=== PATIENT | female | born 1945 | race American Indian/Alaskan Native ===

== ENCOUNTER 2017-02-20 11:50 | Emergency (ER) | payer MEDICARE ==
[2017-02-20 11:54] VITALS: BMI 39.1
[2017-02-20 12:00] VITALS: RESP 18; O2SAT 100
--- NOTE | 2017-02-20 12:16 | ED PDOC ---
Arrival/HPI - General Historian: Patient - History of Present Illness Time/Duration: 4-6 hours Symptom Onset: Sudden Symptom Course: Unchanged - General Chief Complaint: Chest Pain Time Seen by Provider: 02/20/17 11:53 - History of Present Illness Narrative History of Present Illness (Text): 02/20/17 12:12 71 y/o female with hx DM, HTN, questionable coronary disease presenting with complaints of left sided chest pain. Patient states pain started this morning and has persisted since. She describes the pain as heaviness located over her left chest. Patient denies radiation of pain, shortness of breath or diaphoresis. Her discomfort is not exacerbated with exertion. Patient is compliant with her medications. She underwent cardiac stress testing in 2013 which patient states was normal. There is a strong family history of early heart disease in her family as patient states her father and brother suffered from heart problems in their early 50's. (Eduard Mendez) Past Medical History - Provider Review Nursing Documentation Reviewed: Yes - Cardiac Hx Cardiac Disorders: Yes Hx Hypertension: Yes - Pulmonary Hx Respiratory Disorders: No - Neurological Hx Neurological Disorder: No - HEENT Hx HEENT Disorder: No - Renal Hx Renal Disorder: No - Endocrine/Metabolic Hx Endocrine Disorders: Yes Hx Diabetes Mellitus Type 2: Yes - Hematological/Oncological Hx Blood Disorders: No - Integumentary Hx Dermatological Disorder: No - Musculoskeletal/Rheumatological Hx Musculoskeletal Disorders: No - Gastrointestinal Hx Gastrointestinal Disorders: No - Genitourinary/Gynecological Hx Genitourinary Disorders: No - Psychiatric Hx Psychophysiologic Disorder: No Hx Substance Use: No - Surgical History Hx Hysterectomy: Yes (1995) Other/Comment: R Knee 2004 Family/Social History - Physician Review Nursing Documentation Reviewed: Yes Family/Social History: Diabetes, CAD/[place] Smoking Status: Never Smoked Hx Alcohol Use: No Hx Substance Use: No Allergies/Home Meds Allergies/Adverse Reactions: Allergies No Known Allergies Allergy (Verified 02/20/17 13:00) Home Medications: Home Meds Medication Instructions Recorded Confirmed Clopidogrel [Plavix] 75 mg PO DAILY 12/11/15 02/20/17 Linagliptin [Tradjenta] 5 mg PO DAILY 12/11/15 02/20/17 Metoprolol Succinate [Toprol XL] 50 mg PO DAILY 12/11/15 02/20/17 Review of Systems - Physician Review All systems were reviewed & negative as marked: Yes - Review of Systems Constitutional: absent: Fatigue, Fevers ENT: Normal Respiratory: absent: SOB, Cough Cardiovascular: Chest Pain. absent: Palpitations, Calf Pain Gastrointestinal: absent: Abdominal Pain, Diarrhea, Nausea, Vomiting Genitourinary Female: absent: Dysuria, Frequency, Hematuria Musculoskeletal: absent: Arthralgias, Back Pain Skin: absent: Rash, Pruritis Neurological: absent: Headache, Dizziness, Focal Weakness Psychiatric: absent: Anxiety, Depression Physical Exam Vital Signs Reviewed: Yes Temperature: Afebrile Blood Pressure: Normal Pulse: Regular Respiratory Rate: Normal Appearance: Positive for: Well-Appearing Pain Distress: None Mental Status: Positive for: Alert and Oriented X 3 - Systems Exam Head: Present: Atraumatic, Normocephalic Pupils: Present: PERRL Extroacular Muscles: Present: EOMI Conjunctiva: Present: Normal Mouth: Present: Moist Mucous Membranes Neck: Present: Normal Range of Motion Respiratory/Chest: Present: Clear to Auscultation. No: Respiratory Distress, Wheezes Cardiovascular: Present: Regular Rate and Rhythm, Normal S1, S2 Abdomen: Present: Normal Bowel Sounds. No: Tenderness, Distention Upper Extremity: Present: Normal Inspection. No: Cyanosis, Edema Lower Extremity: Present: Normal Inspection. No: Edema, CALF TENDERNESS, NORMAL PULSES Neurological: Present: GCS=15, CN II-XII Intact, Speech Normal Skin: Present: Warm, Dry Psychiatric: Present: Alert, Oriented x 3, Normal Insight, Normal Concentration Vital Signs Temp Pulse Resp BP Pulse Ox 02/20/17 15:00 68 18 132/82 100 02/20/17 13:16 98.0 F 71 18 134/86 100 02/20/17 11:59 97.9 F 72 18 136/99 H 100 Medical Decision Making - EKG Interpretation Interpreted by ED Physician: Yes (NSR with occational PVC. No acute ischemic changes) Type: 12 lead EKG ED Course and Treatment: 02/20/17 12:20 71 y/o female with hx DM, HTN presenting with complaints of chest pain. Patient with strong family history of heart disease with risk factors including HTN and diabetes. She is currently taking Aspirin and Plavix at home. Last stress test was reportedly negative in 2013. Due to family hx and risk factors will r/o ACS. - CBC - CMP - Troponin - EKG with NSR. PVC's. No evidence of acute ischemia 02/20/17 15:33 Lab results reviewed. Troponin is negative. Discussed with the patient the need for admission for to trend cardiac enzymes. However the patient refused admission at this time and wishes to sign out AMA. The risks of leaving without medical care were discussed including permanent bodily injury and . The patient voiced understanding. (Eduard Mendez) Seen and examined with resident. 71 y/o F p/w chest pain. No chest tenderness on exam. Patient left AMA after 1 set of enzymes negative. (Eduard Turcios) - Lab Interpretations Lab Results: 02/20/17 12:45 02/20/17 12:40 Lab Results 02/20/17 12:45: WBC 11.5 H, RBC 5.19, Hgb 12.5, Hct 38.1, MCV 73.4 L, MCH 24.1 L , MCHC 32.8, RDW 17.7 H, Plt Count 416, MPV 9.7, Gran % 66.9, Lymph % (Auto) 24.3, [place] % (Auto) 5.8, Eos % (Auto) 2.7, Baso % (Auto) 0.3, Gran # 7.70 H, Lymph # 2.8, [place] # 0.7 H, Eos # 0.3, Baso # 0.03 02/20/17 12:40: Sodium 142, Potassium 3.8, Chloride 105, Carbon Dioxide 24, Anion Gap 17, BUN 9, Creatinine 0.7, Est GFR ( Amer) > 60, Est GFR (Non- Af Amer) > 60, Random Glucose 95, Calcium 9.0, Total Bilirubin 0.6, AST 23, ALT 8, Alkaline Phosphatase 120, Lactate Dehydrogenase 587, Total Creatine Kinase 35 , Troponin I < 0.01, Total Protein 7.7, Albumin 3.4, Globulin 4.3, Albumin/ Globulin Ratio 0.8 L - Medication Orders Current Medication Orders: Discontinued Medications Aspirin (Aspirin) 325 mg PO STAT STA Stop: 02/20/17 13:20 Last Admin: 02/20/17 13:30 Dose: Not Given Non-Admin Reason: Patient Refused Comments: pt took own Disposition/Present on Arrival - Present on Arrival Any Indicators Present on Arrival: No History of DVT/PE: No History of Uncontrolled Diabetes: No Urinary Catheter: No History Surgical Site Infection Following: None - Disposition Have Diagnosis and Disposition been Completed?: Yes Disposition Time: 15:38 Patient Plan: Discharge - Disposition Diagnosis: Chest pain Disposition: AGAINST MEDICAL ADVICE Condition: FAIR Discharge Instructions (ExitCare): Chest Pain (ED) Additional Instructions: Please see your primary physician in 1 to 2 days for evaluation of chest pain. Return to the ER if your pain worsens or changes in any way. Referrals: Lyndon Dee MD [Primary Care Provider] - Follow up with primary
[2017-02-20 12:47] LABS: ADD MANUAL DIFF? NO
[2017-02-20 12:53] LABS: BASO # 0.03 K/mm3 (0.0-2.0); BASO % 0.3 % (0.0-3.0); EOS # 0.3 (0.0-0.7); EOS % 2.7 % (1.5-5.0); GRAN % 66.9 % (50.0-68.0); HEMATOCRIT 38.1 % (36.0-48.0); LYMPH # 2.8 (1.2-3.4); LYMPH % 24.3 % (22.0-35.0); MEAN CELL VOLUME 73.4 fL (80.0-105.0); MEAN CORPUSCULAR HEMOGLOBIN 24.1 pg (25.0-35.0); MEAN CORPUSCULAR HGB CONC 32.8 g/dl (31.0-37.0); MEAN PLATELET VOLUME 9.7 fl (7.0-11.0); MONO # 0.7 (0.1-0.6); MONO % 5.8 % (1.0-6.0); PLATELET COUNT 416 10^3/uL (120.0-450.0); RED CELL DISTRIBUTION WIDTH 17.7 % (11.5-14.5); WHITE BLOOD COUNT 11.5 10^3/ul (4.5-11.0)
[2017-02-20 13:12] LABS: ALB/GLOB RATIO 0.8 (1.1-1.8); ALKALINE PHOSPHATASE 120 U/L (38-133); ALT/SGPT 8 U/L (7-56); AST/SGOT 23 U/L (15-39); BILIRUBIN,TOTAL 0.6 mg/dL (0.2-1.3); BLOOD UREA NITROGEN 9 mg/dL (7-21); CARBON DIOXIDE 24 mmol/L (21-33); CHLORIDE 105 mmol/L (98-107); GFR AFRICAN-AMERICAN > 60; GLUCOSE,RANDOM 95 mg/dL (70-110); POTASSIUM 3.8 mmol/L (3.6-5.0); SODIUM 142 mmol/L (132-148); TOTAL PROTEIN 7.7 g/dL (5.8-8.3)
[2017-02-20 13:16] VITALS: TEMP 98
[2017-02-20 13:30] LABS: TROPONIN I < 0.01 ng/mL
[2017-02-20 15:05] VITALS: BP 132/82; PULSE 68
--- NOTE | 2017-02-21 09:40 | CARD ---
APPROVED REPORT EKG Measurement Heart [id number] <Conclusion> Poor data quality, interpretation may be adversely affected Sinus rhythm with occasional premature ventricular complexes Low voltage QRS Septal infarct, age undetermined Abnormal ECG
== END 2017-02-20 15:30 | disposition left against medical advice (07) ==
LOC: ED 11:50
DX: R07.9 Chest pain, unspecified (principal); I10 Essential (primary) hypertension; E11.9 Type 2 diabetes mellitus without complications

== ENCOUNTER 2018-04-22 17:18 | Observation (INO) | payer MEDICARE ==
[2018-04-22 17:27] VITALS: BMI 42.9
--- NOTE | 2018-04-22 17:44 | ED PDOC ---
Arrival/HPI - General Chief Complaint: Chest Pain Time Seen by Provider: 04/22/18 17:29 Historian: Patient - History of Present Illness Narrative History of Present Illness (Text): 04/22/18 17:41 72 year old female, whose past medical history includes hypertension, borderline diabetes and a family history of heart disease, who presents to the emergency department complaining of chest pain that radiates to the neck and left shoulder for 2 days. Patient's PMD, Dr. Stubbs, wanted her to get a stress test that she has not had done yet. Patietn took aspirin for the pain with minimal relief. Patient denies any fever, chills, shortness of breath, nausea, vomiting, diarrhea, back pain, neck pain, headache, dizziness, or any other complaints. Time/Duration: < week (2 days) Symptom Onset: Gradual Symptom Course: Unchanged Activities at Onset: Light Context: Home Past Medical History - Provider Review Nursing Documentation Reviewed: Yes - Infectious Disease Hx of Infectious Diseases: None - Cardiac Hx Cardiac Disorders: Yes Hx Hypertension: Yes Hx Peripheral Edema: Yes (left ankle +1) - Pulmonary Hx Respiratory Disorders: No - Neurological Hx Neurological Disorder: No - HEENT Hx HEENT Disorder: Yes Other/Comment: USES GLASSES - Renal Hx Renal Disorder: No - Endocrine/Metabolic Hx Endocrine Disorders: Yes Hx Diabetes Mellitus Type 2: Yes - Hematological/Oncological Hx Blood Disorders: No - Integumentary Hx Dermatological Disorder: No - Musculoskeletal/Rheumatological Hx Musculoskeletal Disorders: No - Gastrointestinal Hx Gastrointestinal Disorders: No - Genitourinary/Gynecological Hx Genitourinary Disorders: No - Psychiatric Hx Psychophysiologic Disorder: No Hx Substance Use: No - Surgical History Hx Hysterectomy: Yes (1995) Other/Comment: R Knee 2004 - Anesthesia Hx Anesthesia: Yes Hx Anesthesia Reactions: No Hx Malignant Hyperthermia: No Family/Social History - Physician Review Nursing Documentation Reviewed: Yes Family/Social History: Unknown Family HX Smoking Status: Never Smoked Hx Alcohol Use: No Hx Substance Use: No Allergies/Home Meds Allergies/Adverse Reactions: Allergies No Known Allergies Allergy (Verified 04/22/18 17:30) Home Medications: Home Meds Medication Instructions Recorded Confirmed Linagliptin [Tradjenta] 5 mg PO DAILY 12/11/15 01/30/18 Metoprolol Succinate [Toprol XL] 50 mg PO DAILY 12/11/15 01/30/18 Review of Systems - Physician Review All systems were reviewed & negative as marked: Yes - Review of Systems Constitutional: Normal Eyes: Normal ENT: Normal Respiratory: Normal. absent: SOB, Cough Cardiovascular: Chest Pain (chest pain radiating to neck and left shoulder) Gastrointestinal: Normal. absent: Abdominal Pain, Diarrhea, Nausea, Vomiting Genitourinary Female: Normal Musculoskeletal: Normal. absent: Back Pain, Neck Pain Skin: Normal. absent: Rash Neurological: Normal. absent: Headache, Dizziness Endocrine: Normal Hemo/Lymphatic: Normal Psychiatric: Normal Physical Exam Vital Signs Reviewed: Yes Vital Signs Temp Pulse Resp BP Pulse Ox 04/22/18 17:37 98 F 79 18 142/93 H 95 Temperature: Afebrile Blood Pressure: Hypertensive Pulse: Regular Respiratory Rate: Normal Appearance: Positive for: Well-Appearing, Non-Toxic, Comfortable Pain Distress: None Mental Status: Positive for: Alert and Oriented X 3 - Systems Exam Head: Present: Atraumatic, Normocephalic Pupils: Present: PERRL Extroacular Muscles: Present: EOMI Conjunctiva: Present: Normal Mouth: Present: Moist Mucous Membranes Neck: Present: Normal Range of Motion. No: Meningeal Signs, MIDLINE TENDERNESS , JVD Respiratory/Chest: Present: Clear to Auscultation, Good Air Exchange. No: Respiratory Distress, Accessory Muscle Use Cardiovascular: Present: Regular Rate and Rhythm, Normal S1, S2. No: Murmurs Abdomen: No: Tenderness, Distention, Peritoneal Signs Back: Present: Normal Inspection. No: CVA Tenderness, Midline Tenderness, Paraspinal Tenderness Upper Extremity: Present: Normal Inspection. No: Cyanosis, Edema Lower Extremity: Present: Normal Inspection. No: Edema Neurological: Present: GCS=15, CN II-XII Intact, Speech Normal Skin: Present: Warm, Dry, Normal Color. No: Rashes Psychiatric: Present: Alert, Oriented x 3, Normal Insight, Normal Concentration Medical Decision Making ED Course and Treatment: 04/22/18 17:47 Impression: 72 year old female who presents to the emergency department complaining of chest pain that radiates to neck and left shoulder. Plan: -- EKG -- Labs -- Lipase -- Chest X-ray -- NTG -- Reassess and disposition Progress Notes: Chest X-ray reviewed, shows: LUNGS: Elevation right hemidiaphragm with suspected minor right basilar atelectasis. Findings could be due to eventration PLEURA: No significant pleural effusion identified, no pneumothorax apparent. CARDIOVASCULAR: Heart appears mildly enlarged OSSEOUS STRUCTURES: No significant abnormalities. VISUALIZED UPPER ABDOMEN: Normal. OTHER FINDINGS: None. IMPRESSION: No acute cardiopulmonary disease. Elevation right hemidiaphragm with suspected minor right basilar atelectasis. Findings could be due to eventration. 04/22/18 17:59 EKG reviewed, shows NSR at 78 bpm. Lft Atrial Enlargement. Flattened T wave changes laterally. - Lab Interpretations Lab Results: 04/22/18 17:51 04/22/18 17:51 Lab Results 04/22/18 17:51: Sodium 145, Potassium 4.0, Chloride 108 H, Carbon Dioxide 26, Anion Gap 15, BUN 17, Creatinine 0.7, Est GFR ( Amer) > 60, Est GFR (Non- Af Amer) > 60, Random Glucose 98, Calcium 9.2, Total Bilirubin 0.2, AST 25, ALT 19, Alkaline Phosphatase 120, Lactate Dehydrogenase 456, Total Creatine Kinase 29 L, Troponin I < 0.01, Total Protein 7.8, Albumin 3.9, Globulin 3.9, Albumin/ Globulin Ratio 1.0 L, Lipase 104 04/22/18 17:51: PT 11.8, INR 1.03 04/22/18 17:51: WBC 14.1 H D, RBC 5.27, Hgb 12.8, Hct 38.6, MCV 73.2 L, MCH 24.3 L, MCHC 33.2, RDW 17.8 H, Plt Count 382, MPV 9.5, Gran % 62.0, Lymph % ( Auto) 29.5, [place] % (Auto) 6.0, Eos % (Auto) 2.3, Baso % (Auto) 0.2, Gran # 8.71 H, Lymph # (Auto) 4.1 H, [place] # (Auto) 0.8 H, Eos # (Auto) 0.3, Baso # (Auto) 0.03 - RAD Interpretation Radiology Orders: 04/22/18 17:33 CXR [CHEST PORTABLE] [RAD] Stat - Medication Orders Current Medication Orders: Aspirin (Ecotrin) 81 mg PO DAILY KHUSHBOO Insulin Human Regular (Humulin R Low) 0 units SC ACHS K[facility]US[facility]OO PRN Reason: Protocol Metoprolol Succinate (Toprol Xl) 50 mg PO DAILY K[facility]USHBOO Linagliptin [ Tradjenta] 5 Mg ( Home Med) 5 mg PO DAILY KHUSHBOO Discontinued Medications Nitroglycerin (Nitrostat Sl Tab) 0.4 mg SL STAT STA Stop: 04/22/18 17:38 Last Admin: 04/22/18 17:53 Dose: 0.4 mg - Scribe Statement The provider has reviewed the documentation as recorded by the Rebeccaibtawny Dexter All medical record entries made by the Amelia were at my direction and personally dictated by me. I have reviewed the chart and agree that the record accurately reflects my personal performance of the history, physical exam, medical decision making, and the department course for this patient. I have also personally directed, reviewed, and agree with the discharge instructions and disposition. Disposition/Present on Arrival - Present on Arrival Any Indicators Present on Arrival: Yes History of DVT/PE: No History of Uncontrolled Diabetes: No Urinary Catheter: No History of Decub. Ulcer: No History Surgical Site Infection Following: None - Disposition Have Diagnosis and Disposition been Completed?: Yes Diagnosis: Chest pain Disposition: HOSPITALIZED Disposition Time: 21:10 Patient Plan: Admission, Telemetry Patient Problems: Current Active Problems Problem Status Onset Chest pain Acute Condition: GOOD
--- NOTE | 2018-04-22 17:51 | RAD ---
HISTORY: Chest Pain COMPARISON: Comparison chest 03/17/2017 FINDINGS: LUNGS: Elevation right hemidiaphragm with suspected minor right basilar atelectasis. Findings could be due to eventration PLEURA: No significant pleural effusion identified, no pneumothorax apparent. CARDIOVASCULAR: Heart appears mildly enlarged OSSEOUS STRUCTURES: No significant abnormalities. VISUALIZED UPPER ABDOMEN: Normal. OTHER FINDINGS: None. IMPRESSION: No acute cardiopulmonary disease. Elevation right hemidiaphragm with suspected minor right basilar atelectasis. Findings could be due to eventration.
[2018-04-22 18:08] LABS: BASO # 0.03 K/mm3 (0.0-2.0); BASO % 0.2 % (0.0-3.0); EOS # 0.3 (0.0-0.7); EOS % 2.3 % (1.5-5.0); GRAN # 8.71 (1.4-6.5); HEMOGLOBIN 12.8 g/dL (12.0-16.0); LYMPH # 4.1 (1.2-3.4); LYMPH % 29.5 % (22.0-35.0); MEAN CELL VOLUME 73.2 fl (80.0-105.0); MEAN CORPUSCULAR HEMOGLOBIN 24.3 pg (25.0-35.0); MEAN CORPUSCULAR HGB CONC 33.2 g/dl (31.0-37.0); MEAN PLATELET VOLUME 9.5 fl (7.0-11.0); MONO # 0.8 (0.1-0.6); RBC 5.27 10^6/uL (3.5-6.1); RED CELL DISTRIBUTION WIDTH 17.8 % (11.5-14.5); WHITE BLOOD COUNT 14.1 10^3/ul (4.5-11.0)
[2018-04-22 18:16] LABS: INR 1.03 (0.93-1.08); PROTHROMBIN TIME 11.8 SECONDS (9.4-12.5)
[2018-04-22 18:35] LABS: ALBUMIN 3.9 g/dL (3.0-4.8); ALT/SGPT 19 U/L (7-56); AST/SGOT 25 U/L (14-36); BLOOD UREA NITROGEN 17 mg/dL (7-21); CALCIUM 9.2 mg/dL (8.4-10.5); GFR AFRICAN-AMERICAN > 60; GFR NON-AFRICAN AMERICAN > 60; LIPASE 104 U/L (23-300)
[2018-04-22 18:47] LABS: TROPONIN I < 0.01 ng/mL
[2018-04-23 02:48] VITALS: O2SAT 95
[2018-04-23] MEDS: Insulin Reg-LOW-Coverage SC SCH ×2 (08:21→11:51)
[2018-04-23] MEDS ORDERED: Metoprolol Succinate 50 mg XL Tab PO SCH (10:00)
[2018-04-23 13:49] VITALS: BP 119/76; PULSE 75; RESP 18; TEMP 98.3
--- NOTE | 2018-04-23 14:48 | CARD ---
APPROVED REPORT EKG Measurement Heart [id number] <Conclusion> Normal sinus rhythm Possible Left atrial enlargement T wave abnormality, consider lateral ischemia Abnormal ECG
--- NOTE | 2018-04-23 17:47 | HP ---
DATE OF EXAM: 04/23/2018 CHIEF COMPLAINT AND HISTORY OF PRESENT ILLNESS: This is a 72-year-old female, who is coming into the hospital because of chest pain. She said the pain was going down her left leg and shoulder. She says she had a pain for 2 days. She has a history of hypertension and borderline diabetes. She states that she had gone to see Dr. Stubbs, who wanted her to get a stress test. She has not been able to get the stress test. She has been taking aspirin. She denies any shortness of breath. No nausea. No vomiting. No dysuria or frequency. No nocturia. No weakness in the arms or the legs. No headaches. No dizziness. REVIEW OF SYMPTOMS: All other review of symptoms are within normal limits except that was mentioned. She states that she had a stress test many years ago and was negative, but does not remember who did the stress test. ALLERGIES: NO KNOWN DRUG ALLERGIES. HOME MEDICATIONS: Linagliptin and metoprolol. PAST MEDICAL HISTORY: Diabetes type 2, hypertension, right patella rupture, gait dysfunction. PAST SURGICAL HISTORY: Hysterectomy, right knee surgery in 2004. SOCIAL HISTORY: She denies smoking or drug use. PHYSICAL EXAMINATION: VITAL SIGNS: The patient has a temperature of 98.2, pulse of 89, blood pressure is 100/65, respirations 20, O2 saturation 96%. Height is 5 feet 4 inches. Weight is 260 pounds. BMI is 44.6. GENERAL: The patient lying in bed, uncomfortable, and in no acute distress. HEENT: Atraumatic and normocephalic. Anicteric sclerae. Moist mucosa. [place] conjunctivae. No oral lesions. NECK: No JVD, anterior and posterior adenopathy, thyromegaly, or bruits. CARDIOVASCULAR: S1 and S2 regular. No murmur, rubs, or gallop. LUNGS: Clear to auscultation bilaterally. No wheezes, rales, or rhonchi. ABDOMEN: Bowel sounds are positive. Soft, nontender and nondistended. No hepatosplenomegaly. No rebound and no guarding EXTREMITIES: No cyanosis, clubbing, or edema. NEUROLOGIC: No facial asymmetry. Tongue is midline. No uvula deviation. Power is 5/5 upper extremity and lower extremity. Sensation intact in upper extremity and lower extremity. PSYCHIATRIC: She is awake, alert and oriented x3. No anxiety or depression. She has normal affect. GENITOURINARY: No CVA tenderness. VASCULAR: 2+ pulses in the carotid pulses and pedal pulses. SKIN: No erythema or nodules SPINE: Shows normal curvature. LABORATORY DATA: White count of 14.1, hemoglobin is 12.8, platelet count IS 382. INR is 1. Chemistry shows a sodium 145, potassium is 4. Troponin x2 is negative. Chest x-ray done shows no acute intracranial abnormalities. EKG shows sinus rhythm at 78. Left atrial enlargement, flattened T-waves. ASSESSMENT: 1. Chest pain. 2. Diabetes type 2. 3. Morbid obesity with a body mass index of 44.6. PLAN: The patient is brought into the hospital because of chest pain. Troponin has been negative. The patient's EKG does not show any significant abnormality. The patient is going to be on an insulin sliding scale. I have asked Dr. Baca to evaluate the patient. I did speak to him. The patient is on aspirin and metoprolol. She will most likely need a stress test. I will check with Dr. Baca to see if the patient can get an outpatient stress. She will follow up with Dr. Stubbs. Discharged home. Condition stable. Activities increase as tolerated. The patient was advised to come back to the hospital if symptoms return. Nitin Barfield MD
--- NOTE | 2018-04-24 01:02 | CON ---
DATE: 04/23/2018 CARDIOLOGY CONSULTATION HISTORY: The patient is a 72-year-old woman who presents with an episode of transient chest discomfort which is nonspecific. Her symptoms are now relieved. The patient's past medical history is unclear. She does not remember having any kind of cardiac procedures, not sure whether she has had a myocardial infarction in the past. She denies shortness of breath. Her cardiac risk factors includes hypertension, morbid obesity as well as diabetes mellitus. SOCIAL HISTORY: The patient denies smoking. REVIEW OF SYSTEMS: A 14-point review of systems is reviewed in detail. Other than pedal edema, the patient has no cardiac symptoms. She walks with a walker after knee surgery. PHYSICAL EXAMINATION: VITAL SIGNS: Blood pressure is 119/76, heart rate in the 70s. NECK: Negative JVD. LUNGS: Without rales. HEART: Reveal S1, S2. EXTREMITIES: Without edema. LABORATORIES: An EKG shows normal sinus rhythm with nonspecific ST-T flattening. Hemoglobin is 12.8. Chemistries; BUN and creatinine, troponins are negative x2. IMPRESSION: 1. Atypical chest pain. 2. No evidence for acute coronary syndrome. 3. Diabetes mellitus. 4. Hypertension. 5. Morbid obesity. 6. Transient pedal edema. PLAN: Given these findings, there is no evidence for acute coronary syndrome. We will discharge the patient today. We will arrange for an outpatient stress test. The patient is agreeable to the plan. Michael Baca MD
== END 2018-04-23 16:08 | disposition home or self-care (01) ==
LOC: ED 17:18 → INTOOBSV 19:48 → ERH 19:48 → 2RSO 21:24
PROVIDERS: ADMIT Internal Medicine Nephrology; ATTEND Internal Medicine Nephrology
DX: R07.89 Other chest pain (principal); I10 Essential (primary) hypertension; E11.9 Type 2 diabetes mellitus without complications; E66.01 Morbid (severe) obesity due to excess calories; Z68.41 Body mass index [BMI] 40.0-44.9, adult; R60.0 Localized edema; Z79.84 Long term (current) use of oral hypoglycemic drugs; Z79.82 Long term (current) use of aspirin; Z82.49 Family history of ischemic heart disease and other diseases of the circulatory system
CPT/HCPCS: 36415; 71045; 80053; 82550; 82948; 83615; 83690; 84484; 85025; 85610; 93005; 99285; G0378